=== PATIENT | female | born 1970 | race Two or more races ===

== ENCOUNTER 2020-11-05 13:17 | Outpatient (CLI) | payer OTHER | END 2020-11-05 13:25 | disposition home or self-care (01) | LOC: NUCLEAR 13:17 | PROVIDERS: ATTEND Internal Medicine Sports Medicine | DX: C73 Malignant neoplasm of thyroid gland (principal) | CPT/HCPCS: 79005; A9517 ==

== ENCOUNTER 2021-05-11 18:11 | Emergency (ER) | payer OTHER ==
[~2021-05-11] VITALS: Ht 149.9 cm; Wt 59.0 kg
[2021-05-11] MEDS ORDERED: DIOVAN40 MG (18:26)
[2021-05-11] MEDS ORDERED: SYNTHROID112 MCG (18:26)
[2021-05-11] MEDS ORDERED: KLONOPIN (18:27)
[2021-05-11] MEDS ORDERED: PRELONE (18:27)
[2021-05-11] MEDS ORDERED: NORFLEX100MG PO (19:57)
== END 2021-05-11 20:12 | disposition home or self-care (01) ==
LOC: ER 18:11
DX: S20.229A Contusion of unspecified back wall of thorax, initial encounter (principal); W19.XXXA Unspecified fall, initial encounter; Y92.89 Other specified places as the place of occurrence of the external cause; E03.9 Hypothyroidism, unspecified; I10 Essential (primary) hypertension

== ENCOUNTER 2021-07-31 09:18 | Outpatient (CLI) | payer OTHER ==
[~2021-07-31 09:18] MED LIST: DIOVAN40 MG; KLONOPIN; NORFLEX100MG PO; PRELONE; SYNTHROID112 MCG
== END 2021-07-31 09:24 | disposition home or self-care (01) ==
LOC: LAB 09:18
DX: Z20.828 Contact with and (suspected) exposure to other viral communicable diseases (principal); Z20.822 Contact with and (suspected) exposure to COVID-19; Z11.52 Encounter for screening for COVID-19

== ENCOUNTER 2021-08-20 13:56 | Emergency (ER) | payer OTHER ==
[~2021-08-20] VITALS: Ht 149.9 cm; Wt 61.2 kg
== END 2021-08-20 16:25 | disposition home or self-care (01) ==
LOC: ER 13:56
DX: R60.0 Localized edema (principal); M79.605 Pain in left leg; M79.604 Pain in right leg; R20.0 Anesthesia of skin

== ENCOUNTER 2021-11-22 12:10 | Outpatient (CLI) | payer OTHER | END 2021-11-22 12:11 | disposition home or self-care (01) | LOC: NUCLEAR 12:10 | PROVIDERS: ATTEND Internal Medicine Sports Medicine | DX: C73 Malignant neoplasm of thyroid gland (principal); Z88.6 Allergy status to analgesic agent | CPT/HCPCS: 78012; A9531 ==